=== PATIENT | female | born 1935 | race American Indian/Alaskan Native ===

== ENCOUNTER → 2017-01-27 | Day surgery (SDC) | payer MEDICARE ==
[~2017-01-27] VITALS: Ht 157.5 cm; Wt 61.5 kg
[~2017-01-27] MED LIST: CHLORHEXIDINE GLUCONATE 2 % 1 PACK (2 CLOTHS) TOPICAL PRN; CYCLOPENTOLATE HCL 1% OPHT SOLN 2 ML BTL ONE; DIFL0.0512 RIGHT EYE; HYALURONIDASE/LIDOCAINE/EPINEPHRINE/BUPIVACAINE 4.5 ML SYR ONE; HYALURONIDASE/LIDOCAINE/EPINEPHRINE/BUPIVACAINE 4.5 ML SYR RIGHT EYE ONE; HYALURONIDASE/LIDOCAINE/EPINEPHRINE/BUPIVACAINE 6 ML SYR ONE; HYALURONIDASE/LIDOCAINE/EPINEPHRINE/BUPIVACAINE 6 ML SYR RIGHT EYE ONE; INSULIN HUMAN REGULAR 1,000 UNITS/10 ML VIAL SQ PRN; LACTATED RINGER'S 1000 ML IV PRN; METOPROLOL TARTRATE 25 MG TAB PO PRN; MIDAZOLAM HCL 2 MG/2 ML VIAL ONE; NEPA0.3D RIGHT EYE; PHENYLEPHRINE HCL 10% OPTH SOLN 5 ML BTL ONE; POVIDONE IODINE 5% (ANTISEPSIS KIT) 4 APPLICATIONS EACH NARE PRN; PROPOFOL 200 MG/20 ML AMP ONE; SODIUM CHLORID 0.9% 500 ML IV PRN; TETRACAINE 0.5% OPTH SOLN 4 ML BTL ONE; TOBRAMYCIN/DEXAMETHASONE OPTH OINT 3.5 GM TUBE ONE; TROPICAMIDE 1% OPHT SOLN 15 ML BTL ONE; VIGA0.5D RIGHT EYE; VISCOAT OPHT IRRIG SOLN 0.75 ML SYRINGE ONE
[2017-01-27 06:50] VITALS: PULSE 65; PULSE 78
[2017-01-27] MEDS: PHENYLEPHRINE HCL 10% OPTH SOLN 5 ML BTL RIGHT EYE SCH ×3 (06:50→07:00)
[2017-01-27] MEDS: TETRACAINE 0.5% OPTH SOLN 4 ML BTL RIGHT EYE SCH ×3 (06:50→07:00)
[2017-01-27] MEDS: TROPICAMIDE 1% OPHT SOLN 15 ML BTL RIGHT EYE SCH ×3 (06:50→07:00)
[2017-01-27] MEDS: CYCLOPENTOLATE HCL 1% OPHT SOLN 2 ML BTL RIGHT EYE SCH ×3 (06:50→07:00)
[2017-01-27 07:21] VITALS: PULSE 65
[2017-01-27 08:45] VITALS: TEMP 97.8
[2017-01-27 09:05] VITALS: BP 146/64; PULSE 72; RESP 16; O2SAT 96
--- NOTE | 2017-01-27 09:57 | PD.OP ---
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 She was prepped and draped in the usual sterile fashion for ophthalmic surgery. A wire lid speculum was placed in the right eye. A paracentesis incision was created at the 11 o'clock position on the limbus. Vision blue dye and viscoelastic was injected into the anterior chamber. The main incision was created at the 8 o'clock position on the limbus with a 2.4 mm keratome. A continuous curvilinear capsulorrhexis was made on the anterior lens capsule. Hydrodissection was used to separate the lens from the capsule. Phacoemulsification was used to remove the lens nucleus material. Irrigation and aspiration was used to remove the remaining cortical material. The lens implant ([id number] [id number]) was placed in the capsular bag. Viscoelastic was removed with irrigation and aspiration. The incisions were irrigated and found to be watertight. Tobradex ointment, a patch, and shield were placed on the right eye. The patient was sent to PACU in stable condition. Nanci Pratt MD Jan 27, 2017 09:57
== END | disposition home or self-care (01) ==
LOC: PHSDC 06:24
PROVIDERS: ATTEND Ophthalmology
DX: H25.041 Posterior subcapsular polar age-related cataract, right eye (principal); Z96.1 Presence of intraocular lens
CPT/HCPCS: 00142; 66984; J2250; J7040; V2632

== ENCOUNTER → 2017-02-24 | Day surgery (SDC) | payer MEDICARE ==
[~2017-02-24] VITALS: Ht 152.4 cm; Wt 61.4 kg
[~2017-02-24] MED LIST changes: +DIFL0.0512 LEFT EYE; -DIFL0.0512 RIGHT EYE; +EPINEPHrine HCL PF/SF (1:1000) 1 MG/ML AMP I-OCULAR ONE; +HYALURONIDASE/LIDOCAINE/BUPIVACAINE 5 ML SYR LEFT EYE ONE; -HYALURONIDASE/LIDOCAINE/EPINEPHRINE/BUPIVACAINE 4.5 ML SYR ONE; -HYALURONIDASE/LIDOCAINE/EPINEPHRINE/BUPIVACAINE 4.5 ML SYR RIGHT EYE ONE; -HYALURONIDASE/LIDOCAINE/EPINEPHRINE/BUPIVACAINE 6 ML SYR ONE; -HYALURONIDASE/LIDOCAINE/EPINEPHRINE/BUPIVACAINE 6 ML SYR RIGHT EYE ONE; -MIDAZOLAM HCL 2 MG/2 ML VIAL ONE; +NEPA0.3D LEFT EYE; -NEPA0.3D RIGHT EYE; +VIGA0.5D LEFT EYE; -VIGA0.5D RIGHT EYE
[2017-02-24] MEDS: TETRACAINE 0.5% OPTH SOLN 4 ML BTL RIGHT EYE SCH ×3 (06:45→06:55)
[2017-02-24] MEDS: PHENYLEPHRINE HCL 2.5% OPTH SOLN 2 ML BTL RIGHT EYE SCH ×3 (06:45→06:55)
[2017-02-24] MEDS: TROPICAMIDE 1% OPHT SOLN 15 ML BTL RIGHT EYE SCH ×3 (06:45→06:55)
[2017-02-24] MEDS: CYCLOPENTOLATE HCL 1% OPHT SOLN 2 ML BTL RIGHT EYE SCH ×3 (06:45→06:55)
[2017-02-24 07:20] VITALS: PULSE 75
[2017-02-24 07:34] VITALS: PULSE 74
--- NOTE | 2017-02-24 08:46 | PD.OP ---
Operative Report Date of Surgery: Feb 24, 2017 Preoperative Diagnosis: (1) Posterior subcapsular polar age-related cataract, left eye Postoperative Diagnosis: (1) Pseudophakia of left eye Procedure: phacoemulsification and intraocular lens implant left eye Anesthesia: RBB, MAC Surgeon: Nanci Pratt White Shoe Ragger(s): none Operation and Findings: Patient was consented for surgery, given a retrobulbar block by anesthesia, and taken back to the operating room. She was prepped and draped in the usual sterile fashion for ophthalmic surgery. A wire lid speculum was placed in the left eye. A paracentesis incision was created at the 5 o'clock position on the limbus. Vision blue dye and viscoelastic was injected into the anterior chamber. The main incision was created at the 2 o'clock position on the limbus with a 2.4 mm keratome. A continuous curvilinear capsulorrhexis was made on the anterior lens capsule. Phacoemulsification was used to remove the lens nucleus material. Irrigation and aspiration was used to remove the remaining cortical material. The lens implant ([id number] [id number] SN [id number]) was placed in the capsular bag. Viscoelastic was removed with irrigation and aspiration. The incisions were irrigated and found to be watertight. Tobradex ointment, a patch , and shield were placed on the left eye. The patient was sent to PACU in stable condition. Nanci Pratt MD Feb 24, 2017 08:46
[2017-02-24 09:20] VITALS: BP 141/79; PULSE 74; RESP 16; TEMP 98; O2SAT 100
== END | disposition home or self-care (01) ==
LOC: PHSDC 06:10
PROVIDERS: ATTEND Ophthalmology
DX: H25.042 Posterior subcapsular polar age-related cataract, left eye (principal)
CPT/HCPCS: 00142; 66984; J0171; J7040; V2632